=== PATIENT | female | born 1985 | race African-American/Black ===

== ENCOUNTER 2016-09-27 19:56 | Emergency (ER) | payer OTHER ==
[~2016-09-27] VITALS: Ht 175.3 cm; Wt 99.8 kg
[2016-09-27 22:19] LABS: URINE BILIRUBIN NEGATIVE (Negative); URINE BLOOD 2+ (Negative); URINE COLOR YELLOW; URINE GLUCOSE-RANDOM* NEGATIVE (Negative); URINE KETONES NEGATIVE (Negative); URINE NITRITE NEGATIVE (Negative); URINE PROTEIN (DIPSTICK) NEGATIVE (Negative); URINE SPECIFIC GRAVITY 1.025 (1.003-1.035); URINE UROBILINOGEN 0.2 E.U./dl (0.2-1.0)
[2016-09-27] MEDS ORDERED: TRINATE TABLET1 TAB PO (22:19)
[2016-09-27] MEDS ORDERED: IRON325 PO (22:19)
[2016-09-27] MEDS ORDERED: IODINE1 GM (22:20)
[2016-09-27 22:29] LABS: BACTERIA 1-9 Few /HPF (None Seen); CASTS None Seen /LPF (None Seen); CRYSTALS None Seen /LPF (None Seen); SQUAMOUS 0-3 Few /LPF (0-3); URINE RBC 0-2 Rare /HPF (0-2); URINE WBC None Seen /HPF (0-5)
[2016-09-27 23:34] LABS: ABSOLUTE NEUTROPHILS 2.1 thou/uL (1.4-8.2); BASOPHILS 0.6 % (0.0-2.0); EOSINOPHILS 1.7 % (0.0-3.0); HEMATOCRIT 31.8 % (37.0-47.0); LYMPHOCYTES 50.4 % (24.0-44.0); MCH 33.1 pg (26.0-34.0); MCHC 34.6 g/dL (28.0-37.0); MCV 95.6 fL (80.0-100.0); MONOCYTES 8.8 % (1.0-8.0); PLATELET COUNT 159 thou/uL (150-400); POLYS 38.5 % (36.0-66.0); RBC 3.32 mil/uL (4.20-5.00); RDW 12.8 % (10.5-14.5); WBC 5.5 thou/uL (4.0-11.0)
[2016-09-27 23:37] LABS: MANUAL DIFF NO
[2016-09-27 23:50] LABS: CALCIUM 9.2 mg/dL (8.5-10.1); CREATININE 0.5 mg/dL (0.6-1.0); POTASSIUM 3.8 mmol/L (3.5-5.1)
[2016-09-28] MEDS ORDERED: TRINATE TABLET1 TAB PO (00:26)
[2016-09-28 01:46] VITALS: BP 102/49
== END 2016-09-28 01:47 | disposition home or self-care (01) ==
LOC: ER 19:56
PROVIDERS: Emergency Medicine
DX: O20.0 Threatened abortion (principal); Z3A.20 20 weeks gestation of pregnancy; D64.9 Anemia, unspecified